=== PATIENT | female | born 1970 | race Two or more races ===

== ENCOUNTER 2019-11-28 08:29 | Inpatient (IN) | payer OTHER ==
[~2019-11-28] VITALS: Ht 167.6 cm; Wt 72.6 kg
[2019-11-28] VITALS (11 sets, daily range): BP systolic 95–119; BP diastolic 57–72
[~2019-11-28 08:29] MED LIST: ceFAZolin sod 2 GM in NS 55 ML IVPB ONE
--- NOTE | 2019-11-28 08:59 | Pre-Procedure Note/Attestation ---
Pre-Procedure Note/Attestation Complete Prior to Procedure Planned Procedure: not applicable Procedure Narrative: Cervical 56 artificial disc replacement Indications for Procedure Pre-Operative Diagnosis: C56 herniation Attestation I attest that I discussed the nature of the procedure; its benefits; risks and complications; and alternatives (and the risks and benefits of such alternatives ), prior to the procedure, with the patient (or the patient's legal product sales representative). I attest that, if there was a reasonable possibility of needing a blood transfusion, the patient (or the patient's legal product sales representative) was given the [facility] standardized written summary, pursuant to the [place] Blood Safety Act ([place] Health and Safety Code # 1645, as amended). I attest that I re-evaluated the patient just prior to the surgery and that there has been no change in the patient's H&P, except as documented below: Ryan Harding MD Nov 28, 2019 08:59
--- NOTE | 2019-11-28 09:02 | Brief Operative Note ---
Immediate Post Operative Note Operative Note Chief Complaint: neck pain and radiculopathy Pre-op Diagnosis: C56 herniation Procedure: Cervical 56 artificial disc replacement Post-op Diagnosis: same as pre-op Findings: consistent w/pre-op dx studies Surgeon: Meaghan Employment Legal Assistant: Micaela Anesthesiologist: jeff Anesthesia: general Specimen: none Complications: none Condition: stable Fluids: ivf Estimated Blood Loss: minimal Drains: none Implant(s) used?: Yes - prodisc c sz 5 Ryan Harding MD Nov 28, 2019 09:02
[2019-11-28] MEDS ORDERED: Thrombin 5000 units TOPIC ONE (09:36)
[2019-11-28] MEDS ORDERED: Bacitracin 50000 Units Vial ONE (09:36)
[2019-11-28] MEDS ORDERED: Gelfoam Size TOPIC ONE (09:36)
[2019-11-28] MEDS ORDERED: MUPIROCIN22 GM TOPIC (09:50)
[2019-11-28] MEDS ORDERED: Midazolam 2mg/2ml Inj ONE (10:23)
[2019-11-28] MEDS ORDERED: Ketorolac 30mg Inj ONE (10:23)
[2019-11-28] MEDS ORDERED: fentaNYL 100 mcg/2 mL IV ONE (10:23)
[2019-11-28] MEDS ORDERED: Lidocaine 1% MPF 10mg/ml 5ml ONE (10:23)
[2019-11-28] MEDS ORDERED: Rocuronium Bromide 50mg/5ml Inj IV ONE (10:32)
[2019-11-28] MEDS ORDERED: Succinylcholine 20mg/ml 10ml vial ONE (10:32)
[2019-11-28] MEDS ORDERED: Propofol 1,000mg/ 100ml btl IV ONE (11:00)
[2019-11-28] MEDS ORDERED: LR 1000ml ONE (12:00)
[2019-11-28] MEDS ORDERED: Neostigmine 1mg/ml 10ml Inj ONE (12:00)
[2019-11-28] MEDS ORDERED: NS Irrig 1000ml ONE (12:00)
[2019-11-28] MEDS ORDERED: Sterile Water Irrig 1000ml IRRIG ONE (12:00)
[2019-11-28] MEDS ORDERED: LR 1000ml 1,000 ML IVLG SCH (13:14)
--- NOTE | 2019-11-28 13:14 | Anethesia Preoperative Eval ---
Anesthesia Pre-op PMH/ROS General Date of Evaluation: Nov 28, 2019 Time of Evaluation: 11:58 Anesthesiologist: Kerrie ASA Score: ASA 2 Mallampati Score Class I : Soft palate, uvula, fauces, pillars visible Class II: Soft palate, uvula, fauces visible Class III: Soft palate, base of uvula visible Class IV: Only hard plate visible Mallampati Classification: Class II Surgeon: Meaghan Diagnosis: Cervical radiculopathy Surgical Procedure: ACDF Anesthesia History: none Family History: no anesthesia problems Allergies: Coded Allergies: QUINOLONES (Verified Allergy, Intermediate, rash, itching, 11/28/19) Medications: see eMAR Patient NPO?: Yes NPO Date: Nov 27, 2019 NPO Time: 1150 Past Medical History Cardiovascular: Denies: HTN, CAD, [place], valve dz, arrhythmia, other Pulmonary: Denies: asthma, COPD, HAIR, other Gastrointestinal/Genitourinary: Reports: GERD; Denies: CRI, ESRD, other Neurologic/Psychiatric: Reports: other - chronic pain; Denies: dementia, CVA, depression/anxiety, TIA Endocrine: Denies: DM, hypothyroidism, steroids, other HEENT: Denies: cataract (L), cataract (R), glaucoma, [place] (L), [place] (R), other Hematology/Immune: Denies: anemia, DVT, bleeding disorder, other Musculoskeletal/Integumentary: Denies: OA, RA, DJD, DDD, edema, other PMH Narrative: as above PSxH Narrative: Hysterectomy, chest wall mass removal Anesthesia Pre-op Phys. Exam Physician Exam Last Vital Signs Date Time Temp Pulse Resp B/P (MAP) Pulse Ox O2 Delivery O2 Flow Rate FiO2 11/28/19 10:04 Room Air 11/28/19 09:37 97.3 54 18 99/66 (77) 97 Constitutional: NAD Neurologic: CN 2-12 intact Cardiovascular: RRR, no M/R/G Respiratory: CTA Gastrointestinal: S/NT/ND Airway Exam Mallampati Score: Class II MO: full Neck: flexible ROM: full Teeth: intact Dentures: no upper, no lower Anesthesia Pre-op A/P Labs see chart Studies Pre-op Studies: EKG - NSR Risk Assessment & Plan Assessment: ASA 2 Plan: GA with ETT neuromonitoring Status Change Before Surgery: No Pre-Antibiotics Drug: Ancef 1gr. Given Within 1 Hr of Incision: Yes Time Given: 12:50 Jesus Sy MD Nov 28, 2019 13:14
[2019-11-28] MEDS ORDERED: Ketorolac 30mg Inj IV PRN (13:15)
[2019-11-28] MEDS ORDERED: DiphenhydrAMINE 50mg/ml Inj IVP PRN ×2 (13:15→17:15)
[2019-11-28] MEDS ORDERED: Acetaminophen (Non formulary) 100 ML IV ONE (13:15)
[2019-11-28] MEDS ORDERED: Metoclopramide 10mg/2ml Inj IVP PRN ×2 (13:15→16:00)
[2019-11-28] MEDS ORDERED: Meperidine 25mg/0.5ml Inj (FOR RIGORS ONLY) IV PRN (13:15)
[2019-11-28] MEDS ORDERED: Glycopyrrolate 0.2mg/ml 1ml Vial ONE (13:16)
[2019-11-28] MEDS ORDERED: Sodium Chloride 10ml vial INJ ONE (13:16)
[2019-11-28] MEDS ORDERED: Morphine Sulfate 10mg/ml Inj ONE (13:17)
--- NOTE | 2019-11-28 14:27 | Immediate Post-Op Evaluation ---
Immediate Post-Op Evalulation Immediate Post-Op Evalulation Procedure: ACDF c5-C6 Date of Evaluation: Nov 28, 2019 Time of Evaluation: 14:26 IV Fluids: 1000 Blood Products: none Estimated Blood Loss: 50 Urinary Output: 300 Blood Pressure Systolic: 118 Blood Pressure Diastolic: 76 Pulse Rate: 62 Respiratory Rate: 20 O2 Sat by Pulse Oximetry: 99 Temperature (Fahrenheit): 97.6 Pain Score (1-10): 1 Nausea: No Vomiting: No Complications none Patient Status: reacts, patent, extubated, none Hydration Status: adequate Jesus Sy MD Nov 28, 2019 14:27
--- NOTE | 2019-11-28 15:30 | NUR ---
NURSE NOTES: Patient arrived to [facility] via bed at 1530 in stable condition, on O2 3LNC. Sleepy, arousable to name, neuros intact, skin warm, wiggles, hand grasps/pedal pushes 4/5, no NT. Anterior neck surgical site, CDI, ice pack in place. Daughter at bedside. Oriented patient to room and call light for safety. Call light in reach, bed in lowest position, will continue to monitor.
[2019-11-28] MEDS ORDERED: Chloraseptic Spray 20mL Bottle ORAL PRN (16:00)
[2019-11-28] MEDS ORDERED: HYDROcodone/Acetamin 7.5/325 tab ORAL PRN ×2 (16:00)
[2019-11-28] MEDS ORDERED: Naloxone 0.4mg/ml Inj IVP PRN (16:00)
[2019-11-28] MEDS ORDERED: HYDROmorphone 1mg/ml Carpuject IVP PRN (16:00)
[2019-11-28] MEDS ORDERED: Milk of Magnesia 30ml Ud ORAL PRN (16:00)
[2019-11-28] MEDS ORDERED: HYDROcodone/Acetamin 5/325 tab ORAL PRN (16:00)
[2019-11-28] MEDS ORDERED: Morphine Sulfate 4mg/ml Inj (IV USE ONLY) IV PRN (16:00)
[2019-11-28] MEDS: NS w/KCl 20mEq 1000ml 1,000 ML IV SCH (16:21)
[2019-11-28] MEDS: Morphine Sulfate 2mg/ml Inj(IV/IM USE ONLY) IV PRN (16:22)
--- NOTE | 2019-11-28 16:30 | NUR ---
NURSE NOTES: Post op orders/medications/spine surgery activity level 3 reviewed with patient and daughter. BLE SCDs on. IS provided, instructed on indication and demonstrated, returned demonstration, provided small rolled towel to splint surgical site when coughing, patient verbalized understanding. IVF infusing NS +20 KCL at 100 ml/hr as ordered, LH site asymptomatic. Surgical site pain 10/10, reviewed pain medication orders, offered Morphine 4 mg IV, patient requested Morphine 2 mg IV, see eMAR.
--- NOTE | 2019-11-28 17:01 | Diagnostic Imaging Report ---
INDICATION: Pain, intraoperative TECHNIQUE: Intraoperative imaging Fluoroscopy time: 24.6 seconds Total dose: 0.84315 mGym2 Total number of images: 5 COMPARISON: None FINDINGS: Intraoperative images demonstrate surgical tool overlying the C5-6 disc level. Subsequent images demonstrate another surgical tool projected at the anterior aspect of the C5-6 disc. Subsequent images demonstrate placement of a disc prosthesis at C5-6. This appears well aligned IMPRESSION: Intraoperative imaging, as described
[2019-11-28] MEDS: Dexamethasone 4mg/ml vial IVP SCH (17:32)
[2019-11-28] MEDS ORDERED: Docusate 100mg cap ORAL SCH (18:00)
[2019-11-28] MEDS ORDERED: Docusate Sod/Senna tab ORAL SCH (18:00)
--- NOTE | 2019-11-28 19:26 | NUR ---
NURSE NOTES: Received report from JASMIN Case. Pt is awake, lying semi-solares's; comfortably resting. No signs of acute distress noted. Pt reports 8/10 in the neck area. Daughter at bedside. AOx4; able to make needs known. Checked IV site, line, and rate; patent and running. No erythema, bleeding, or infiltration noted. Bed at lowest position. Brakes on. Siderails up x2. Call light within reach. Will continue to monitor.
--- NOTE | 2019-11-28 19:27 | NUR ---
HAND-OFF: Report given to Lakia CASTELLANOS, rounds made. Assisted patient to bathroom, gait slow, requires x1 assist.
[2019-11-28] MEDS: ceFAZolin sod 1 GM in D5W 55 ML IV SCH (20:25)
[2019-11-28] MEDS: Morphine Sulfate 4mg/ml Inj (IV USE ONLY) IV PRN (20:26)
--- NOTE | 2019-11-28 23:15 | Operative Note - Dictated ---
DATE OF OPERATION: 11/28/2019 SURGEON: Ryan Harding M.D., Orthopaedic Spine Surgeon. TELEVISION TECHNICIAN: HUANG Pena. PREOPERATIVE DIAGNOSES: 1. Intractable neck pain. 2. Radiculopathy. 3. Herniation, C5-C6. 4. Neuroforaminal stenosis, C5-C6. 5. Stenosis. POSTOPERATIVE DIAGNOSES: 1. Intractable neck pain. 2. Radiculopathy. 3. Herniation, C5-C6. 4. Neuroforaminal stenosis, C5-C6. 5. Stenosis. PROCEDURE PERFORMED: 1. Anterior cervical diskectomy and artificial disc replacement of C5-C6 using a Synthes ProDisc C 5 height. 2. Use of intraoperative microscope. 3. Motor-evoked potential monitoring. 4. Somatosensory-evoked potential monitoring. 5. Supervision and interpretation of fluoroscopy. COMPLICATIONS: None. ANESTHESIA: General. ESTIMATED BLOOD LOSS: Less than 100 mL. INDICATIONS FOR SURGERY: This patient is a 49-year-old female who has a history of diagnoses as listed above. As of result of this, the patient sustained intractable neck pain, radiculopathy, herniation at C5-C6, neuroforaminal stenosis at C5-C6, and stenosis. We tried a course of conservative management, but despite this course, there was still a significant component of persistent, recalcitrant neck pain and arm pain. The MRI demonstrated significant neural foraminal compromise secondary to disc herniations at C5-C6. We had a long discussion with Sylvia regarding the risks and benefits of surgery. Our discussion included but was not limited to nonoperative management, chiropractic management, another epidural steroid injection as well as definitive management in the form of surgery. We recommended an artificial disc replacement of C5-C6 as final definitive management. We reviewed the risks and benefits of surgery with the patient. Our discussion included a comprehensive review of the clinical issues and the nature of the clinical decision. We reviewed the alternatives, including doing nothing. The patient elected to proceed accordingly with an artificial disc replacement of C5-C6. We had a long discussion regarding the risks, alternatives, and benefits of surgery. Our description of the risks included a discussion in person as well as a signed consent which detailed all pertinent risks from the procedure itself. Briefly, our discussion included but was not limited to infection, bleeding, pseudarthrosis, spinal cord injury, neurovascular injury, dural tear, CSF leak, neuropathy, paralysis, permanent weakness/drop foot/drop arm, paresthesias, blindness, palsy, and weakness. The patient understood there may be a need for a revision surgery or additional procedures. Approach-related complications including dysphonia, dysphagia, blindness, permanent vocal cord and neural injury, hematoma, swallowing and breathing difficulty. Medical complications were reviewed including liver, kidney, shock, cardiopulmonary failure, anesthesia complications including , swelling, damage to the musculature, larynx/voice injury or loss, esophagus/throat, trachea, blood vessels and muscles/muscular sprain and lungs/pneumothorax during this surgical procedure; injury to deeper structures may be temporary or permanent. After this review of risks, the patient understood these and elected to proceed. A written and verbal consent was given. We discussed the pros and cons of all the alternatives. We discussed the uncertainties associated with the decision. Afterwards, I assessed the patient's understanding and explored their preferences. All questions were answered and no guarantees were given. Medical clearance was obtained prior to surgery. INTRAOPERATIVE FINDINGS: There was a tear noted in the posterior longitudinal ligament. This tear was nearly vertical and through the tear, I was able to mobilize and reflect the bulk of the herniated nucleus pulposus, which was applying direct pressure on the thecal sac and neural foramina posteriorly. After resection of the disc fragments, I noted a complete and thorough decompression of the spinal cord along its lateral margins and posteriorly and that the disc itself was soft and not calcified, crumbled, or collapsed, which we see typically in a degenerative process leading me to believe this was more somatic in nature. DESCRIPTION OF PROCEDURE: Under the benefit of general endotracheal anesthesia and with the assistance of the entire operative team, the patient was moved from the [facility] onto the operative table in the supine position. The head was secured and carefully positioned appropriately. Bilateral arms were secured with Gel Pads and foam and all bony prominences were padded. For the bilateral lower extremities, SCD and KATARINA hose were placed for DVT prophylaxis. A surgical timeout was called which corroborated our planned procedure of an artificial disc replacement of C5-C6. Preoperative antibiotics were administered within 30 minutes of the incision for antibiotic prophylaxis. Using lateral fluoroscopic radiography, the operative levels were delineated. Next, the wound was prepped and draped with chlorhexidine and sterile drapes. An incision was based on lateral fluoroscopy and we centered our incision at the C5-C6 interspace and next, using a standard Zarco-Solares anterior-based approach, the incision was taken down through the skin and subcutaneous tissues until the vertebral bodies and their corresponding disc spaces were visualized. A needle was placed into the interspace to confirm placement of the operative interspace and we performed the remainder of procedure under microscopic visualization. Next, using bipolar and Bovie cautery to ensure meticulous hemostasis, the longus colli was mobilized bilaterally and retractors were placed deep to the longus colli bilaterally to address retraction. Next we turned our attention to the radical anterior discectomy. This was performed at C5-C6 by using a 15 blade scalpel followed by narrow pituitaries and a Microsect 5-B curette was used to denude the endplate of all cartilaginous tissue. Next, using a Targeter App AM8 drill bit, the vertebral endplates were denuded of all residual cartilage in a sykx-wu-dler and psggz-zw-vmese fashion, and ultimately the posterior uncinate joints bilaterally and posterior osteophytic lips and margins were carefully denuded until clear visualization of the posterior longitudinal ligament was possible. An endplate preparation was performed in the exact same fashion using an intervertebral teleprinter, sequential distraction was obtained throughout the disc space. We saw a tear/rent in the PLL and this was carefully mobilized and dissected using a Microsect 1-B curette until we visualized a discrete disc herniation with compression of the spinal cord as well as neural foramina, which was sided. This neural foraminal compression was carefully resected using a Kerrison-1 and Kerrison-2 rongeurs until complete decompression of the spinal cord was visualized and complete decompression of the neural foramina and nerve root therein as well as the axilla and lateral margin of the nerve root was visualized and subsequently completely decompressed. The family was notified at one-hour intervals throughout the procedure to provide for consistent updates. We next turned our attention towards trialing our implant within the disc space. We initially tried size 5 and this ProDisc Cervical spacer fit well in regard to depth and width. This implant was opened and prepared. Next, under direct visualization, I confirmed excellent fit in respect to the anterior and posterior vertebral bodies, the uncinate joints, and in regard to toggle. Once satisfied with this placement on serial AP and lateral fluoroscopy, I turned my attention towards cutting our astrid. These were cut in the bones using a reciprocating drill and afterwards all free fragments of bone were irrigated. Next, FloSeal was placed into the interspace, then removed in its entirety and the implant was inserted using fluoroscopic guidance. Next, the Synthes ProDisc C size 5 ADR was then carefully advanced and secured into the intervertebral space under direct visualization and with supervision of AP and lateral fluoroscopic views. After a finger sweep, we confirmed removal of all sponges. The retractor was removed and we next turned our attention to meticulous hemostasis with FloSeal and bipolar cautery. After the sponge and needle count was again found to be correct with our second count, we next turned our attention to closure. The wound was again copiously irrigated with antibiotic-impregnated saline. Closure consisted of 4-0 clear nylon for the platysma and 6-0 clear nylon for the superficial skin. Final skin closure and dressings consisted of Dermabond. Prior to final closure, a final radiograph was obtained which demonstrated the hardware was intact with excellent position throughout. The patient tolerated the procedure well. The patient was carefully extubated after the conclusion of surgery. We discussed the findings of the surgery with the family upon completion of the case. At this point, the patient was transferred to the spine floor for further observation. Ryan Harding M.D. DR: Kael JOB#: [id number] CC: VIRGIE
[2019-11-29] VITALS (7 sets, daily range): BP systolic 100–111; BP diastolic 60–68
--- NOTE | 2019-11-29 | NUR ---
NURSE NOTES: Took pt's VS at 0000 and HR was dropping in the high 40s and back up again to the 50s, which is her baseline. Pt is asymptomatic and in no distress. Pt's BP and HR within her normal baseline. Rechecked her radial pulse twice and it was 48 for the first time and 51 on the second check. fish and wildlife scientific aid made aware. Offered to keep the pulse ox on but pt refused as she wants to get some sleep. Asked the pt to keep the BP cuff instead and she agreed. Will continue to monitor.
[2019-11-29] MEDS: Dexamethasone 4mg/ml vial IVP SCH ×2 (00:02→06:23)
--- NOTE | 2019-11-29 02:30 | NUR ---
NURSE NOTES: Pt reports 10/10 pain in the upper back, radiating to the left upper chest, and some in the left shoulder. Pt's HR kept going up and down, droppng as low as 44 and 46 and as high as low 60s. Took apical pulse and radial pulse twice and it was still going up and down to high 40s and high 50s. Aside from pain, pt is still asymptomatic. No N/V, dizziness, etc. Dr. Harding made aware and got new orders including a transfer order to Telemetry. Please see orders for details.
[2019-11-29] MEDS ORDERED: Dexamethasone 4mg/ml vial IVP SCH ×2 (03:00→12:00)
[2019-11-29] MEDS: NS w/KCl 20mEq 1000ml 1,000 ML IV SCH ×3 (03:14→15:00)
--- NOTE | 2019-11-29 03:40 | NUR ---
TRANSFER TO FLOOR: Patient transferred to Telemetry, per Dr. Harding. Report given to JASMIN Lorenzana. Belongings and medications given to pt and daughter. Chart and medications given to JASMIN Lorenzana. Daughter informed of transfer and stayed at bedside in new unit. Pt is awake and in stable condition at the time of transfer. However, pt felt nauseous during prison of the transfer. customs examiner made aware of new orders and plan of care endorsed.
--- NOTE | 2019-11-29 04:02 | NUR ---
NURSE NOTES: Dr. Harding made aware of new updates regarding the pt. Informed him that Dr. Gonzalez okayed transfer to Tele and ordered additional orders. Please see orders for details.
--- NOTE | 2019-11-29 04:13 | NUR ---
NURSE NOTES: New bookstore manager, Harriett, made aware of the new update from Dr. Harding and plan of care endorsed as well.
[2019-11-29] MEDS: ceFAZolin sod 1 GM in D5W 55 ML IV SCH (04:40)
[2019-11-29] MEDS: Morphine Sulfate 4mg/ml Inj (IV USE ONLY) IV PRN (04:41)
[2019-11-29] MEDS: Morphine Sulfate 2mg/ml Inj(IV/IM USE ONLY) IV PRN (04:58)
--- NOTE | 2019-11-29 07:00 | NUR ---
NURSE NOTES: Received report from JASMIN Lorenzana. Pt in bed, awake, fatigued, c/o pain 4-5/10, morphine 2mg IVP given at 0500 by Harriett, pt's daughter is at bedside, pt states she does not have headache, breakfast tray at bedside, discussed plan of care and plan for Physical Therapy to work with pt today, pt not wearing ice pack at this time stating "it is not working", IVF running according to order, bed in lowest position, call light within reach. Dr. Harding called stated to give pt [place] 7.5/325 2 tabs to help control pain.
--- NOTE | 2019-11-29 08:00 | NUR ---
HAND-OFF: Report given to Yarelis Andrea RN. Pt in stable condition.
[2019-11-29] MEDS ORDERED: Milk of Magnesia 30ml Ud ORAL PRN (09:00)
[2019-11-29] MEDS ORDERED: Chloraseptic Spray 20mL Bottle ORAL PRN (09:00)
[2019-11-29] MEDS ORDERED: Morphine Sulfate 4mg/ml Inj (IV USE ONLY) IV PRN ×2 (09:00→10:00)
[2019-11-29] MEDS ORDERED: DiphenhydrAMINE 50mg/ml Inj IVP PRN (09:15)
--- NOTE | 2019-11-29 09:24 | 48 Hour Post Anesthesia Eval ---
Post Anesthesia Evaluation Procedure: ACDF c5-C6 Date of Evaluation: Nov 29, 2019 Time of Evaluation: 09:19 Blood Pressure Systolic: 116 0: 72 Pulse Rate: 58 Respiratory Rate: 18 Temperature (Fahrenheit): 97.6 O2 Sat by Pulse Oximetry: 98 Airway: patent Nausea: No Vomiting: No Pain Intensity: 3 Hydration Status: adequate Cardiopulmonary Status: stable, it was an episode of asymptomatic bradycardia overnight with heart rate in 40-th 12 leads done shows sinus maurice on it did not recall being weak or dizzy. Possible sick sinus syndrome 24 hours holster monitoring as an outpatient recommended. Mental Status/LOC: patient returned to baseline Follow-up Care/Observations: n/a Post-Anesthesia Complications: none Follow-up care needed: N/A Jesus Sy MD Nov 29, 2019 09:24
[2019-11-29] MEDS: Docusate 100mg cap ORAL SCH ×2 (09:37→17:53)
[2019-11-29] MEDS: Docusate Sod/Senna tab ORAL SCH ×2 (09:38→17:53)
[2019-11-29] MEDS: HYDROcodone/Acetamin 7.5/325 tab ORAL PRN ×2 (09:40→15:16)
[2019-11-29] MEDS ORDERED: HYDROcodone/Acetamin 5/325 tab ORAL PRN (10:00)
[2019-11-29] MEDS ORDERED: HYDROmorphone 1mg/ml Carpuject IVP PRN (10:00)
[2019-11-29] MEDS ORDERED: HYDROcodone/Acetamin 7.5/325 tab ORAL PRN (10:00)
--- NOTE | 2019-11-29 11:48 | NUR ---
PT Note PT adelia completed, treatment initiated. Patient has muscle weakness, decreased standing balance with an ataxic gait pattern. Patient needs physical therapy to increase her muscle strength and balance to improve her safety in mobility and gait to enable her to return to [facility]. Addendum: 11/29/19 at 1149 by YANICK ROBERTS PT Amended: Links added.
[2019-11-29] MEDS ORDERED: Morphine Sulfate 2mg/ml Inj(IV/IM USE ONLY) IV PRN (12:00)
[2019-11-29] MEDS ORDERED: ceFAZolin sod 1 GM in D5W 55 ML IV SCH (12:30)
--- NOTE | 2019-11-29 14:29 | Cardiology Progress Note ---
Assessment/Plan Assessment/Plan sinus bradycardia was noted on per preop ekg rate of 58 probably [place] due to medication reglan was administered on 2 occasion yest which can cause maurice and of course with preexisting maurice and keep off reglan , keep on tele over nite , check lasb tsh and ft4 and cbc cmp , she is not symtopamtic form maurice [id number] Objective Last 24 Hour Vital Signs Date Time Temp Pulse Resp B/P (MAP) Pulse Ox O2 Delivery O2 Flow Rate FiO2 11/29/19 12:00 97.7 54 18 102/62 (75) 94 11/29/19 11:34 47 11/29/19 10:10 97.6 11/29/19 09:24 58 18 98 11/29/19 08:45 Room Air 11/29/19 08:00 99.0 52 20 100/66 (77) 94 11/29/19 07:46 54 11/29/19 04:00 97.6 46 18 100/60 (73) 95 11/29/19 04:00 46 11/29/19 02:50 44 11/29/19 02:40 98.0 46 16 101/62 (75) 95 11/29/19 00:00 97.9 54 18 108/65 (79) 96 11/28/19 20:00 97.5 50 17 95/57 (70) 95 11/28/19 17:10 97.0 60 20 110/70 (83) 98 11/28/19 16:10 97.2 51 20 101/69 (80) 100 11/28/19 15:37 97.3 56 18 117/70 (86) 99 11/28/19 15:05 97.3 60 13 106/66 100 Nasal Cannula 3 11/28/19 14:50 57 12 110/70 99 Nasal Cannula 3 11/28/19 14:40 56 12 111/72 99 Nasal Cannula 3 11/28/19 14:30 56 21 113/68 100 Simple Mask 6 11/28/19 14:27 62 20 99 Intake and Output 11/28/19 11/29/19 19:00 07:00 Intake Total 1450 ml 100 ml Output Total 500 ml Balance 950 ml 100 ml Intake Oral 50 ml IV Total 1400 ml 100 ml Output Urine Total 450 ml Estimated Blood Loss 50 ml # Voids 2 2 Raúl Gonzalez MD Nov 29, 2019 14:29
[2019-11-29] MEDS ORDERED: Naloxone 0.4mg/ml Inj IVP PRN (16:00)
[2019-11-29 16:25] LABS: HEMATOCRIT 37.5 % (37.0-47.0); HEMOGLOBIN 12.4 G/DL (12.0-16.0); MEAN CORPUSCULAR VOLUME 91 FL (80-99); PLATELET COUNT 278 K/UL (150-450); RED BLOOD COUNT 4.12 M/UL (4.20-5.40); RED CELL DISTRIBUTION WIDTH 13.1 % (11.6-14.8); WHITE BLOOD COUNT 17.6 K/UL (4.8-10.8)
[2019-11-29 16:55] LABS: ALANINE AMINOTRANSFERASE 24 U/L (12-78); ALBUMIN 3.4 G/DL (3.4-5.0); ALKALINE PHOSPHATASE 68 U/L (46-116); ANION GAP 12 mmol/L (5-15); ASPARTATE AMINO TRANSFERASE 10 U/L (15-37); BILIRUBIN,TOTAL 0.2 MG/DL (0.2-1.0); BLOOD UREA NITROGEN 17 mg/dL (7-18); CALCIUM 9.1 MG/DL (8.5-10.1); CARBON DIOXIDE 22 MMOL/L (21-32); CHLORIDE 108 MMOL/L (98-107); CREATININE 0.9 MG/DL (0.55-1.30); POTASSIUM 4.7 MMOL/L (3.5-5.1); SODIUM 142 MMOL/L (136-145)
--- NOTE | 2019-11-29 19:00 | NUR ---
NURSE NOTES: Received report from JASMIN Santoyo. Patient is awake, lying in semi solares's; resting comfortably. A/Ox4. Denies pain at this time. No signs of acute distress noted. Checked IV site and flushed. No erythema, bleeding or infiltration noted. Bed at lowest position, brakes on, siderailsx3. Call light within reach. Will continue to monitor.
--- NOTE | 2019-11-29 19:41 | NUR ---
HAND-OFF: Report given to JASMIN Quiroz.
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
[2019-11-30] VITALS: BP 112/61
--- NOTE | 2019-11-30 02:00 | NUR ---
NURSE NOTES: Resting throughout the night. No significant change of condition noted. Will continue to monitor.
[2019-11-30 04:00] VITALS: BP 106/75
[2019-11-30] MEDS: NS w/KCl 20mEq 1000ml 1,000 ML IV SCH (04:54)
--- NOTE | 2019-11-30 07:00 | NUR ---
HAND-OFF: Report given to JASMIN Santoyo. Plan of care endorsed.
--- NOTE | 2019-11-30 07:31 | NUR ---
NURSE NOTES: Received report from JASMIN Quiroz. PT in bed, awake, talkative, pain 03/17, discussed plan of care, pt had BM this am, planning for discharge home today, family at bedside, son. Bed in lowest position, call light within reach.
[2019-11-30] MEDS: HYDROcodone/Acetamin 7.5/325 tab ORAL PRN (07:38)
[2019-11-30 08:00] VITALS: BP 120/76
[2019-11-30] MEDS: Docusate Sod/Senna tab ORAL SCH (09:00)
[2019-11-30] MEDS: Docusate 100mg cap ORAL SCH (09:00)
--- NOTE | 2019-11-30 09:00 | NUR ---
NURSE NOTES: Spoke with Dr. Harding, pt okay to go home continuing home medication, if cleared by Dr. Gonzalez. If Cardiology wants to keep pt another night, just make MD Harding aware.
--- NOTE | 2019-11-30 09:53 | NUR ---
NURSE NOTES: Pt had BM this am, did not want any stool softners this am
--- NOTE | 2019-11-30 10:55 | NUR ---
NURSE NOTES: Notified Dr. Gonzalez of EKG results from [facility]. 2D echo done, per tech result are normal, waiting for report, asked for clearance to DC pt home Addendum: 11/30/19 at 1110 by SRI DIOR RN NURSE NOTES: EF 55-60% Lisa flaherty
[2019-11-30 12:00] VITALS: BP 125/86
--- NOTE | 2019-11-30 12:15 | NUR ---
NURSE NOTES: Dr. Gonzalez asking for T4, TSH level and pt's HR. Had pt ambulate and ran tele strip, HR 91, pt is RN notified Dr. Gonzalez
--- NOTE | 2019-11-30 13:06 | NUR ---
NURSE NOTES: Spoke with carol Latif to DC pt home, Pt needs to follow up with Cardiology outpt.
[2019-11-30] MEDS ORDERED: NORCO 10-325 T1 EACH ORAL (13:07)
[2019-11-30] MEDS ORDERED: CARISOPRODOL350 MG ORAL (13:08)
--- NOTE | 2019-11-30 13:28 | NUR ---
NURSE NOTES: pt discharged home with all belongings, pt is ambulatory and accompanied by family, son. Pt signed all DC paperwork. Instructed to follow up with winding lathe operator outpatient and has follow up appointment with Dr. Harding. Pt was given a hand written Rx for pain medication. IV removed intact, ID band removed, tele box returned, pt stable for discharge
[2019-11-30] MEDS ORDERED: 1/2 NS 1000ml IV ONE (14:10)
--- NOTE | 2019-12-02 07:22 | Discharge Summary ---
Discharge Summary Hospital Course Date of Admission Nov 28, 2019 at 08:29 Date of Discharge Nov 30, 2019 at 14:11 Admitting Diagnosis neck pain, cervical radiculopathy Reason for Hospitalization: Elective surgery HPI Sylvia Caldeorn is a 49 year old female who was admitted on Nov 28, 2019 at 08:29 for Herniated Nucleus Pulposus, neck pain, radiculopathy. Patient undergone a course of conservative management , but despite this course, there was still a significant component of persistent, recalcitrant neck pain and arm pain. The MRI demonstrated significant neural foraminal compromise secondary to disc herniations at C5-C6. Subsequently decision was made to proceed with the surgery. Patient was admitted for elective surgery Consultations Dr. Gonzalez- IM/cardio Procedures s/p 11/28/[address] Harding 1. Anterior cervical diskectomy and artificial disc replacement of C5-C6 using a Synthes ProDisc C 5 height. 2. Use of intraoperative microscope. 3. Motor-evoked potential monitoring. 4. Somatosensory-evoked potential monitoring. 5. Supervision and interpretation of fluoroscopy. Hospital Course status post surgery course of recovery uneventful initially IV fluids s/p perioperative antibiotics and steroids neurovascular status closely monitored, remained stable incision with dressing clean ,dry and intact pain management was addressed , and pain was controlled patient noted to be bradycardic in 40th -50th heart rate was closely monitored EKG revealed sinus bradycardia with heart rate down to 46, no specific ST or T wave abnormalities punch box tender followed patient had pre-existing baseline bradycardia patient was on Reglan intravenously, which likely contributed to bradycardia in addition heart rate was checked while patient was asleep and had increased vagal tone patient was taken off Reglan heart rate improved punch box tender recommended to monitor heart rate as outpatient and follow up with thyroid function test in the hospital TSH low and T4 within normal limits heart rate improved to 56 prior to discharge ambulated with PT fall precautions maintained; safe for ambulation DVT prophylaxis provided use of incentive spirometry was encouraged while in the bed tolerated soft diet , IV fluids discontinued cepacol was on board as needed for throat discomfort GI prophylaxis provided antiemetics were on board as needed voided freely bowel regimen instituted patient was stable for discharge discharge instructions provided follow up with surgeon in the office as advised FINAL DIAGNOSES 1. Intractable neck pain. 2. Radiculopathy. 3. Herniation, C5-C6. 4. Neuroforaminal stenosis, C5-C6. 5. Stenosis 6. s/p ACDF C5-C6 7. Sinus bradycardia 8. History of childhood asthma Discharge Medications Continued Medications: Carisoprodol* (Carisoprodol*) 350 Mg Tablet 350 MG ORAL BID for Muscle Pain and Spasm, TAB (This prescription has been renewed) Hydrocodone Bit/Acetaminophen 10-325* ([place] 10-325*) 1 Each Tablet 1 TAB ORAL Q8HR PRN for For Pain, #12 TAB 0 Refills (This prescription has been renewed) PRN PAIN Mupirocin* (Mupirocin*) 22 Gm Oint...g. 1 APPLIC TOPIC THREE TIMES A DAY for INFECTION , GM (This prescription has been renewed) Discharge Condition Upon Discharge: stable Discharge Vital Signs Last Vital Signs Date Time Temp Pulse Resp B/P (MAP) Pulse Ox O2 Delivery O2 Flow Rate FiO2 11/30/19 12:00 97.5 56 20 125/86 (99) 97 11/30/19 07:44 Room Air 11/28/19 15:05 3 Discharge Disposition Patient was discharged to Home () Discharge Instructions Discharge Instructions Special Instructions I have been assigned to complete a D/C Summary on this account. I was not involved in the patient management Dorothy Harding NP Dec 02, 2019 07:21
--- NOTE | 2019-12-30 11:07 | Diagnostic Imaging Report ---
INDICATION: Pain, intraoperative TECHNIQUE: Intraoperative imaging Fluoroscopy time: 24.6 seconds Total dose: 0.09710 mGym2 Total number of images: 5 COMPARISON: None FINDINGS: Intraoperative images demonstrate surgical tool overlying the C5-6 disc level. Subsequent images demonstrate another surgical tool projected at the anterior aspect of the C5-6 disc. Subsequent images demonstrate placement of a disc prosthesis at C5-6. This appears well aligned IMPRESSION: Intraoperative imaging, as described
== END 2019-11-30 14:11 | disposition home or self-care (01) | DRG 518 ==
LOC: SDSOVERFLO 08:29 → 3E 15:30 → 2E 11-29 03:25 → UNDODISIN 11-30 14:11
PROC: 0RR30JZ Replacement of Cervical Vertebral Disc with Synthetic Substitute, Open Approach (ICD-10-PCS; principal; 2019-11-28 11:00)
DX: M50.122 Cervical disc disorder at C5-C6 level with radiculopathy (principal); M48.02 Spinal stenosis, cervical region; Z87.891 Personal history of nicotine dependence; R00.1 Bradycardia, unspecified; T14.90XS Injury, unspecified, sequela; V89.2XXS Person injured in unspecified motor-vehicle accident, traffic, sequela
CPT/HCPCS: 36415; 72040; 76000; 80053; 83735; 84439; 84443; 85007; 85025; 86850; 86900; 86901; 87081; 93005; 93306; 94003; 94150; C9399; J2180; J2250; J2405; J2710